=== PATIENT | male | born 1950 | race Caucasian/White ===

== ENCOUNTER 2019-09-21 10:05 | Day surgery (SDC) | payer OTHER, BC ==
[2019-09-19 14:44] VITALS: BMI 25.0
[2019-09-21 12:06] VITALS: TEMP 97.5
[2019-09-21 12:29] VITALS: BP 134/62; PULSE 71
--- NOTE | 2019-09-25 17:04 | PATH ---
Surgical Pathology Report Patient Name: ROCKY FLOOD [facility]. Rec. #: [id number] /Age/Gender: 1950 (Age: 68) / M Account: [id number] Location: U-ENDOSCOPY Taken: 09/21/2019 Received: 09/21/2019 Reported: 09/25/2019 Physicians: ALLYSON NDIAYE Specimen(s) Received A: DUODENUM B: ANTRUM C: DISTAL ESOPHAGUS Clinical History Heartburn, colon cancer screening, history of colon polyp Postoperative diagnosis: GERD, hemorrhoids Final Diagnosis A. Duodenum, biopsy: Duodenal mucosa withOUT SIGNIFICANT PATHOLOGIC findings. B. Stomach, antrum, biopsy: Gastric ANTRAL mucosa with MILD chronic gastritis. Immunohistochemical STAIN FOR H. Pylori is negative. C. Distal esophagus, biopsy: Squamous mucosa with changes of mild reflux type esophagitis. Immunohistochemical stain performed at [place], [place] ([id number]) and interpreted at [facility]. Positive and negative controls (internal if applicable) show appropriate results. Electronically Signed Marcela Anderson M.D. Gross Description A. Received in formalin, labeled "biopsy duodenum" are 2 calderon, irregular portions of soft tissue averaging 0.3 cm. in greatest dimension. The specimens are submitted in toto in one cassette. B. Received in formalin, labeled "biopsy antrum" are 2 calderon, irregular portions of soft tissue measuring 0.5 and 0.6 cm. in greatest dimension. The specimens are submitted in toto in one cassette. C. Received in formalin, labeled "biopsy distal esophagus" are 2 calderon, irregular portions of soft tissue averaging 0.5 cm. in greatest dimension. The specimens are submitted in toto in one cassette. DL/09/21/2019 saudi/09/21/2019
== END 2019-09-21 13:05 | disposition home or self-care (01) ==
LOC: JASU-ENDO 10:05
PROVIDERS: ATTEND Internal Medicine Gastroenterology
PROC: 0DB98ZX Excision of Duodenum, Via Natural or Artificial Opening Endoscopic, Diagnostic (ICD-10-PCS; 2019-09-21)
PROC: 0DB68ZX Excision of Stomach, Via Natural or Artificial Opening Endoscopic, Diagnostic (ICD-10-PCS; 2019-09-21)
PROC: 0DB38ZX Excision of Lower Esophagus, Via Natural or Artificial Opening Endoscopic, Diagnostic (ICD-10-PCS; 2019-09-21)
PROC: 0DJD8ZZ Inspection of Lower Intestinal Tract, Via Natural or Artificial Opening Endoscopic (ICD-10-PCS; principal; 2019-09-21 11:30)
DX: Z12.11 Encounter for screening for malignant neoplasm of colon (principal); K64.8 Other hemorrhoids; Z87.19 Personal history of other diseases of the digestive system; K21.0 Gastro-esophageal reflux disease with esophagitis; K29.50 Unspecified chronic gastritis without bleeding
CPT/HCPCS: 43239; G0105; 88305-TC